=== PATIENT | female | born 2000 | race Caucasian/White ===

== ENCOUNTER 2024-08-07 13:52 | Emergency (ER) | payer BC, SELFPAY ==
[2024-08-07 14:07] VITALS: BP 105/70
[2024-08-07 14:27] LABS: % Basophils 0.2 % (0-2); % Eosinophils 0.6 % (0-6); % Immature Granulocytes 0.3 % (0-0.5); % Lymphocytes 12.3 % (20.5-51.1); % Monocytes 4.1 % (1.7-9.3); % Neutrophils 82.5 % (42.2-75.2); Absolute Eosinophils 0.1 10^3/uL (0-0.7); Absolute Lymphocytes 1.1 10^3/uL (1.2-3.4); Absolute Monocytes 0.4 10^3/uL (0.1-0.6); Absolute Neutrophils 7.6 10^3/uL (1.4-6.5); Hematocrit 39.1 % (37.0-47.0); Hemoglobin 14.3 g/dL (12.0-16.0); Mean Corp Hgb Conc. 36.6 g/dL (33.0-37.0); Mean Corpuscular Hgb 30.5 pg (27.0-31.0); Mean Corpuscular Volume 83.4 fL (81.0-99.0); Mean Platelet Volume 10.8 fL (7.4-10.4); Nucleated Red Blood Cells % 0 %; Platelet Count 205 10^3/uL (130-400); Red Blood Cell Count 4.69 10^6/uL (4.20-5.40); Red Cell Dist. Width 11.8 % (11.5-14.5); White Blood Cell Count 9.2 10^3/uL (4.8-10.8)
[2024-08-07 16:12] LABS: ALT (SGPT) 19 U/L (0-35); AST (SGOT) 22 U/L (14-36); Albumin 4.7 g/dl (3.5-5.0); Alkaline Phosphatase 48 U/L (38-126); Blood Urea Nitrogen 8 mg/dl (7-17); Calcium 9.9 mg/dl (8.4-10.2); Carbon Dioxide 18 mmol/L (22-30); Chloride 104 mmol/L (98-107); Glucose 84 mg/dl (70-99); Potassium 4.3 mmol/L (3.5-5.1); Sodium 137 mmol/L (135-145); Total Bilirubin 0.6 mg/dl (0.2-1.3); Total Protein 7.2 g/dl (6.3-8.2); eGFR > 60.00
--- NOTE | 2024-08-07 16:17 | ED.GENMED ---
History of Present Illness
General
Chief Complaint: Gynecological Problem
Source: patient
Exam Limitations: none
Time Seen by Provider: 08/07/24 15:48
Nursing documentation reviewed up to this point in time: agreed with
History of Present Illness
History of Present Illness:
Patient is a 23-year-old female who presents to the ER for evaluation. Patient reports that she was approximately 8 weeks and went to [facility] last week and was treated with misoprostol and Mifeprisone .
She does report that she had bleeding and clots after taking it and has had bleeding since. She reports presently the bleeding is very light thought she did have heavier bleeding and clots after taking the medication. She is concerned however
because she is still nauseous like she was prior to taking the medications. She also reports foul smell and some mild discomfort with urination. She feels that she may have a UTI but was also concerned about vaginal infection. She denies any
vaginal discharge other than bleeding. she believes she may have infection along with UTI she went to urgent care was sent here to rule out retained products of conception.
Patient denies any fever chills.
She does complain of some lower abdominal cramping and she describes this as feeling bloated.
Review of Systems
Review of Systems
Allergies reviewed?: Yes
All Other Systems: ROS reviewed and negative except as documented in HPI and ROS
Constitutional: Reports no symptoms; Denies fever
Cardiac: Reports no symptoms
ABD/GI: Reports abdominal pain (Abdominal cramping), nausea and vomiting
: Reports other (Foul-smelling urine foul-smelling vaginal discharge/bleeding )
Musculoskeletal: Reports no symptoms; Denies back pain
Skin: Reports no symptoms
Neurological: Reports no symptoms
Hematologic/Lymphatic: Reports no symptoms
Psychiatric: Reports no symptoms
Phy Exam
General Physical Exam
General Presentation: no apparent distress
General age: appears stated age
General Skin: warm and dry
General Habitus: normal
General Mental: alert
General Hydration: appears well hydrated
Neurological Exam
Neurological Exam: alert and oriented x3
Musculoskeletal Exam
Musculoskeletal Exam: full ROM
Skin Exam
Skin Exam: normal color and warm/dry
Psychiatric Exam
Psychiatric Exam: normal mood/affect
Course
Orders/Labs/Results
Orders:
Orders
08/07/24 14:17
US W Transvaginal Urgent
Comment: concerns for RPOC after pills
Reason For Exam: abdominal/pelvic pain - R sided
08/07/24 14:20
Complete Blood Count/With Diff Urgent
Comprehensive Metabolic Panel Urgent
HCG, Beta Quantitative [Beta HCG Quantitative] Urgent
Is this a screen?: No
08/07/24 17:27
Urinalysis Reflex To Culture Urgent
Date Specimen was Collected: 08/07/24
Time Specimen was Collected: 17:18
Urine Microscopic Reflex Cult Urgent
Urine Culture Urgent
AYALA Source: U
Specimen Description:
Date Specimen was Collected: 08/07/24
Time Specimen was Collected: 17:18
08/07/24 20:15
Chlamydia/GC by PCR Urgent
AYALA Source: Endo-Cervical
Specimen Description:
Source:: CERVIX
Date Specimen was Collected: 08/07/24
Time Specimen was Collected: 19:07
08/07/24 20:26
Cephalexin Monohydrate [Keflex] 500 mg PO NOW STA
Abnormal Lab Results
08/07/24 08/07/24
14:20 17:27
MPV 10.8 H fL
(7.4-10.4)
Absolute Neuts (auto) 7.6 H 10^3/uL
(1.4-6.5)
Absolute Lymphs (auto) 1.1 L 10^3/uL
(1.2-3.4)
Neutrophils % 82.5 H %
(42.2-75.2)
Lymphocytes % 12.3 L %
(20.5-51.1)
Carbon Dioxide 18 L mmol/L
(22-30)
Urine Ketones 1+ A
(Negative)
Ur Occult Blood Reflex 1+ A
(Negative)
Urine Nitrite (Reflex) Positive A
(Negative)
Leukocyte Esterase Rfl 1+ A
(Negative)
Urine WBC (Reflex) 11-15 A /HPF
(0-5)
Urine Bacteria (Reflex) Many A
(Negative)
08/07/24 14:20
08/07/24 14:20
Vital Signs
Initial and Last Documented VS:
Initial Vital Signs
Temp Pulse Resp BP Pulse Ox
98.0 F 107 16 105/70 96
08/07/24 14:07 08/07/24 14:07 08/07/24 14:07 08/07/24 14:07 08/07/24 14:07
Last Documented Vital Signs
Temp Pulse Resp BP Pulse Ox
98.0 F 79 18 110/72 99
08/07/24 14:07 08/07/24 20:00 08/07/24 20:00 08/07/24 20:00 08/07/24 20:00
MDM/Problems Addressed
Differential Diagnosis Includes:
Not limited to UTI, retained products of conception
MDM/Problems Addressed:
Patient is a 23-year-old female who has documented went to [facility] last week on 07/30 treated for medical with misoprostol and Mifepristone presented to the ER for evaluation. Despite taking this medication she tells me she still
feels nauseous and vomiting. She did bleed afterward and now has light bleeding. She does complain of foul urine smell/ vaginal smell. She complains of bloating. Patient had ultrasound today which does show single live IUP of 9 weeks 0 days
with a heart rate of 174. Beta-hCG is 114,840.
Pelvic exam shows small amount of brownish colored blood no purulent drainage no CMT.
Case reviewed with [facility] on-call. Patient is nontoxic afebrile normal white count abdomen soft very minimally tender she is well-appearing. Symptoms not concerning for infection related to medical . She does have complaints of
foul-smelling urine and has some mild discomfort with urination. Urine does show nitrates and 11-15 white blood cells we will treat for UTI. She was given instructions as discussed with [facility] to follow-up with her [facility]. She does have a local
[facility] [address] [place] [address]. She was also given instructions to go back to [facility] for further evaluation. She is still planning on now .
*Radiology
Radiology exam reviewed: radiology read reviewed
*Critical Care Note
Total Time (30-74mins, 75-104mins- exclusive of procedures): Not Applicable
Patient Management
Discussion with other providers: Cook Fry (OBGYN )
ED Attending Note
-
Portions of this chart may have been created with voice recognition software.� Occasional wrong word or��sound alike� substitutions may have occurred due to the inherent limitations of voice recognition software.
Discharge Plan
Departure
Patient Disposition: Home (Routine Discharge)
Date of Disposition: 08/07/24
Time of Disposition: 20:23
Patient with high blood pressure during this ER visit?: No
Condition: Fair
Covid-19: Not Applicable
Discharge Problem:
intrauterine , UTI (urinary tract infection)
Instructions: Urinary Tract Infection, Adult ED
Prescriptions:
New
cephalexin 500 mg capsule
500 mg PO BID Qty: 14 0RF
Referrals:
Stef Patel MD [Family Provider] -
Activity Restrictions/Additional Instructions:
As discussed your ultrasound today showed a single live intrauterine gestation at 9 weeks 0 days with a heart rate of 174.
As [facility]
In addition you have a urinary tract infection and a prescription for Keflex was sent to your pharmacy take as directed. Return if any worsening of symptoms of increased pain fever chills or any further concerns
Interventions
Interventions:
*Risk Screen - Suicide Last Done: 08/07/24 20:47
*General Assessment Last Done: 08/07/24 20:47
*Neglect/Abuse Screening Last Done: 08/07/24 20:47
ED- Fall Risk Assessment Last Done: 08/07/24 20:47
*ED COVID-19 Vaccine History Last Done: 08/07/24 20:47
*Nursing Disposition Last Done: 08/07/24 20:47
ED-Female Genitourinary Assessment Last Done: 08/07/24 17:30
Discharge Date and Time
Discharge Date/Time: 08/07/24 20:50
Print Language: MONGOLIAN
[2024-08-07 16:22] VITALS: BMI 21.2
[2024-08-07 17:38] LABS: Urine Albumin Negative (Neg - Trace); Urine Bilirubin Negative (Negative); Urine Character Slightly Cloudy (Clear); Urine Color Yellow; Urine Glucose Negative (Negative); Urine Ketone 1+ (Negative); Urine Leukocyte 1+ (Negative); Urine Nitrite Positive (Negative); Urine Occult Blood 1+ (Negative); Urine Specific Gravity 1.015 (<1.030); Urine Urobilinogen Negative (Neg - 1+)
[2024-08-07 17:45] LABS: Urine Bacteria Many (Negative); Urine Red Blood Cell 0-2 /HPF (0-2)
[2024-08-07 18:10] VITALS: BP 102/53
[2024-08-07 20:00] VITALS: BP 110/72
[2024-08-07] MEDS: KEFLEX 500 MG PO (20:34)
== END 2024-08-07 20:50 | disposition home or self-care (01) ==
LOC: EMR 13:52
PROVIDERS: Nurse Practitioner; EMERGENCY PHYSICIAN Emergency Medicine; FAMILY PHYSICIAN Family Medicine
DX: O26.891 Other specified pregnancy related conditions, first trimester (principal); O23.41 Unspecified infection of urinary tract in pregnancy, first trimester; N39.0 Urinary tract infection, site not specified; Z3A.09 9 weeks gestation of pregnancy; R10.30 Lower abdominal pain, unspecified; R11.2 Nausea with vomiting, unspecified
CPT/HCPCS: 99284; 76801; 76817; 80053; 81003; 81015; 84702; 85025; 87077; 87086; 87186; 87491; 87591